=== PATIENT | male | born 1975 | race Caucasian/White ===

== ENCOUNTER 2018-09-07 11:52 | Emergency (ER) | payer BC, OTHER ==
[~2018-09-07] VITALS: Ht 180.3 cm; Wt 79.4 kg
[2018-09-07 11:58] VITALS: BP_SYST 147
--- NOTE | 2018-09-07 12:04 | NUR ---
Patient to ER bed 3 to gown for evaluation. Side rails up. Report given to Juanjo JUAREZ.
--- NOTE | 2018-09-07 12:43 | NUR ---
ER at bedside examining patient.
--- NOTE | 2018-09-07 12:43 | NUR ---
patient AOx4 from home with c/o right knee pain since thursday night. patient stated he was playing softball when someone slid into his knee. patient stated he motrin for pain and iced his leg. patient has no swelling. patient has a right knee bruise that is cool to the touch. patient has full ROM with mild pain. patient states he would like a light duty work note for two days. no other comlaint or injury at this time.
--- NOTE | 2018-09-07 13:32 | NUR ---
Patient given written and verbal discharge instructions and verbalizes understanding. ER MD discussed with patient the results and treatment provided. Patient in stable condition. ID arm band removed. Rx of Motrin given. Patient educated on pain management and to follow up with PMD. Pain Scale 0/10. Opportunity for questions provided and answered. Medication side effect fact sheet provided.
[2018-09-07 13:34] VITALS: BP_SYST 140
== END 2018-09-07 13:34 | disposition home or self-care (01) ==
LOC: SED 11:52
DX: S83.91XA Sprain of unspecified site of right knee, initial encounter (principal); R03.0 Elevated blood-pressure reading, without diagnosis of hypertension; X58.XXXA Exposure to other specified factors, initial encounter; Y93.64 Activity, baseball; Y92.89 Other specified places as the place of occurrence of the external cause; Y99.8 Other external cause status
CPT/HCPCS: 73564; 99283

== ENCOUNTER 2019-08-16 13:50 | Emergency (ER) | payer BC, OTHER ==
[~2019-08-16] VITALS: Ht 180.3 cm; Wt 77.1 kg
[2019-08-16 14:30] VITALS: BP_SYST 131
--- NOTE | 2019-08-16 14:37 | NUR ---
Patient to ER bed 7 to gown for evaluation. Side rails up. Report given to ANN Lee.
--- NOTE | 2019-08-16 14:45 | NUR ---
ER SIM Mauro examining patient.
--- NOTE | 2019-08-16 14:50 | NUR ---
pt arrives from work.pt stated that his employer asked him to come to the ER d/t a cough. Employer expresses concerns of the pt being exposed to the COVID-19 virus. Pt is currently afebrile.
[2019-08-16] MEDS ORDERED: IPRATROPIUM/ALBUTEROL SULFATE 3 ML AMPUL.NEB (DUONEB) INH ONE (15:00)
--- NOTE | 2019-08-16 15:35 | NUR ---
PT GETING A BREATHING TX AT THE BEDSIDE
[2019-08-16 15:41] VITALS: BP_SYST 124
--- NOTE | 2019-08-16 15:41 | NUR ---
Patient given written and verbal discharge instructions and verbalizes understanding. ER MD discussed with patient the results and treatment provided. Patient in stable condition. ID arm band removed. IV catheter removed intact and dressing applied, no active bleeding. Rx of Albuterol, Prednisone, Promethazine given. Patient educated on pain management and to follow up with PMD. Pain Scale 0. Opportunity for questions provided and answered. Medication side effect fact sheet provided.
== END 2019-08-16 15:41 | disposition home or self-care (01) ==
LOC: SED 13:50
DX: R05 Cough (principal); R03.0 Elevated blood-pressure reading, without diagnosis of hypertension; F17.210 Nicotine dependence, cigarettes, uncomplicated; F12.90 Cannabis use, unspecified, uncomplicated; Z71.6 Tobacco abuse counseling
CPT/HCPCS: 71045; 94640; 99283